=== PATIENT | female | born 1950 | race Caucasian/White ===

== ENCOUNTER 2018-08-31 16:57 | Inpatient (IN) | END 2018-09-02 11:20 | disposition home or self-care (01) | DRG 395 ==

== ENCOUNTER 2019-04-26 11:54 | Emergency (ER) | payer MEDICARE, OTHER ==
[~2019-04-26] VITALS: Ht 162.6 cm; Wt 76.4 kg
[~2019-04-26 11:54] MED LIST: ATOR20TA38 PO; CIPR500T4 PO; LOSA50TA14 PO; METR-122 PO
[2019-04-26 12:06] VITALS: BP 152/80; PULSE 63; RESP 20; Ht 162.6 cm; Wt 76.4 kg
== END 2019-04-26 14:58 | disposition left against medical advice (07) ==
LOC: E/R 11:54
DX: Z53.21 Procedure and treatment not carried out due to patient leaving prior to being seen by health care provider (principal)